=== PATIENT | female | born 1990 | race Two or more races ===

== ENCOUNTER 2024-05-07 20:54 | Emergency (ER) | payer MEDICAID, SELFPAY ==
[2024-05-07 20:54] VITALS: BMI 33.3
[2024-05-07 21:24] VITALS: BP 115/72; PULSE 76; RESP 18; TEMP 37; O2SAT 97
--- NOTE | 2024-05-07 21:31 | XR_ITS ---
Examination: Complete OB ultrasound, less than 14 weeks, transabdominal Date and time of exam: May 07, 2024 1049 hrs. Indications: Heavy vaginal bleeding and pelvic cramping today Technique: Obstetrical ultrasound images less than 14 weeks performed via transabdominal imaging Findings: Uterus 11.0 x 4.0 x 5.3 cm Intrauterine gestational sac in the lower uterine segment, no pole, no cardiac activity Gestational sac size 1.2 cm corresponds to 6 week 0 day gestational age Retained products in the cervix vaginal region 6.3 x 5.2 cm Right ovary 3.5 x 1.4 x 3.1 cm arterial flow Left ovary 3.2 x 1.4 x 2.8 cm arterial flow Impression: Incomplete spontaneous in progress, suggest short-term follow-up pelvic sonography
--- NOTE | 2024-05-07 21:34 | PD.EDPREG ---
ED OB Contraction Preg RMI/HPI General Chief complaint: OB/Uterine Contractions Stated complaint: 7WKS PREG CRAMPING /VAG BLEEDING Time Seen by Provider: 05/07/24 21:36 Arrival date/time: 05/07/24 20:54 34-year-old female A1 approximately 6 weeks gestation reports with complaints of vaginal bleeding and pelvic cramping that began this afternoon. Patient denies any dysuria urinary urgency or frequency lower back pain fever or chills. Patient also denies any trauma or taking any medications use of illicit substances. Limitations: no limitations Related Data Allergies Allergy/AdvReac Type Severity Reaction Status Date / Time No Known Allergies Allergy Verified 08/25/23 21:38 Review of Systems Constitutional Constitutional: Denies chills, Denies fever(s) and Denies headache(s) ENT Ears, Nose, Mouth, and Throat: Denies dizziness and Denies headache(s) Cardiovascular Cardiovascular: Denies chest pain and Denies dyspnea Respiratory Respiratory: Denies cough and Denies dyspnea Gastrointestinal Gastrointestinal: Denies nausea and Denies vomiting Genitourinary Genitourinary: Reports abnormal vaginal bleeding, Denies dysuria, Denies flank pain, Reports pelvic pain and Denies urinary hesitancy Musculoskeletal Musculoskeletal: Denies back pain and Denies myalgias Integumentary/Breasts Skin/Breast: Denies erythema and Denies rash Neurologic Neurologic: Denies dizziness and Denies headache(s) Hematologic/Lymphatic Hematologic/Lymphatic: Denies easy bleeding and Denies easy bruising Past Medical History Social History SMOKING STATUS: Never smoker ED Exam General Limitations: Present no limitations General appearance: Present alert and in no apparent distress Chest Chest inspection: Present normal inspection and symmetric chest wall rise Respiratory Respiratory exam: Present normal lung sounds bilaterally Cardiovascular Cardiovascular exam: Present regular rate, normal rhythm and normal heart sounds Abdominal Exam Abdominal exam: Present soft and normal bowel sounds External exam: Present normal external exam; Absent erythema or tenderness Speculum exam: Present vaginal bleeding and tissue Bimanual exam: Absent cervical motion tenderness or adnexal tenderness Extremities Exam Extremities exam: Present normal inspection and full ROM Back Exam Back exam: Present normal inspection and full ROM Neurological Exam Neurological exam: Present alert, oriented X3 and CN II-XII intact Psychiatric Psychiatric exam: Present normal affect and normal mood Skin Skin exam: Present warm, dry, intact and normal color Course Course Course Narrative: 34-year-old female A1 approximately 7 weeks gestation reports with complaints of vaginal bleeding. Patient's ultrasound indicates incomplete spontaneous in progress beta hCG of less than 2000. Patient is currently stable nontoxic-appearing with stable vital signs urine analysis negative for evidence of infection GC is pending. Patient will be discharged home with a 2-day follow-up with her [employer] for further evaluation of complete . Quality Measures none Orders Category Date Time Status Pelvic Exam X1 Care 05/07/24 21:32 Active US OB <= 14 weeks fetus Stat Exams 05/07/24 21:31 Completed Beta HCG,Quantitative Stat Lab 05/07/24 22:00 Completed Chlamydia/GC/TV - PCR Stat Lab 05/07/24 Ordered UA, C/S IF [Urinalysis, C/S if Indicated] Stat Lab 05/07/24 21:50 Completed Urine Culture Stat Lab 05/07/24 21:50 Received Vital Signs Vital signs: Vital Signs Temperature 98.6 F 05/07/24 21:24 Pulse Rate 76 05/07/24 21:24 Respiratory Rate 18 05/07/24 21:24 Blood Pressure 115/72 05/07/24 21:24 Pulse Oximetry (%) 97 05/07/24 21:24 Oxygen Delivery Method Room Air 05/07/24 21:24 OB/Uterine Contractions Patient data External records reviewed:: None Clinical information provided by:: patient Social determinants that could affect healthcare access:: none Patient has the following chronic illnesses:: none How is presenting disease/condition affected by chronic disease/condition?: no chronic disease Evaluation data The following diagnostics were reviewed and interpreted by me:: lab results and radiology exam(s) Lab and/or radiology exams considered but not ordered:: none Interpretation Summary: Incomplete spontaneous Medications / Prescriptions Medications or Prescriptions considered but not ordered:: None Medication administrations:: None Consultations Consultation(s) initiated? (list below): No Diagnosis OB Contractions Differential Diagnosis: other (Threatened versus spontaneous ) Most likely diagnosis given after review of the tests above:: Incomplete spontaneous Admission Indicated Explain why admission is indicated or not indicated:: Patient is stable nontoxic-appearing with stable vital signs with a miscarriage of only 7 weeks gestation Admission Request Was there a request for admission?: No Disposition Plan Disposition Plan: Discharge Discharge Attestation Discharge Attestation: The patient and all family members were given an opportunity to ask questions and understood the discharge instructions. Discharge instructions specifically effects, indications for sooner follow up or return to the emergency department, and the expected course of current diagnosis. Patient condition: Stable Discharge Plan Plan Patient Disposition: HOME (Self Care) Prescriptions/Referrals Referrals: Temporary Provider,ED [Physician] - In 1 week Problem List Clinical Impression: Incomplete Patient/Caregiver Discharge Instructions Education Materials: Understanding Miscarriage ..., Miscarriage Trying Again, ED Miscarriage, Incomplete Additional Instructions: Hydrate well get plenty of rest please follow-up with your [employer]GER or primary care provider in 24 to 48 hours for reevaluation. If symptoms should worsen return to the emergency department immediately Print Language: Colombian Stand Alone Forms: Anna Award Info., Patient Portal Info Letter
[2024-05-07 22:24] LABS: Collection Type, Urine Clean Catch
[2024-05-07 22:34] LABS: Bilirubin,Urine Negative (Negative); Blood,Urine 3+ (Negative); Color,Urine Brown (Lt Yel-Yel); Glucose, Urine Negative (Negative); Ketones,Urine Negative (Negative); Leukocyte Esterase,Urine Positive (Negative); Nitrite,Urine Negative (Negative); PH,Urine 6.5 (5.0-7.0); Protein,Urine 1+ (Neg - Trace); RBC,Urine 5434 /hpf (0-3); Specific Gravity,Urine 1.023 (1.001-1.035); Squamous Epithelial Cell,Urine 4 /hpf (0-5); Urobilinogen,Urine Negative mg/dL (0.0-1.0); WBC,Urine 37 /hpf (0-5)
[2024-05-07 22:35] LABS: Clarity,Urine Turbid (Clear/Hazy); Culture Indicated,Urine Yes
[2024-05-07 22:54] LABS: Beta HCG,Quantitative 2810 mIU/mL (<5.0)
== END 2024-05-08 00:45 | disposition home or self-care (01) ==
PROVIDERS: Physician Assistant; Emergency Provider Emergency Medicine
DX: O03.4 Incomplete spontaneous abortion without complication (principal); Z3A.01 Less than 8 weeks gestation of pregnancy
CPT/HCPCS: 36415; 76801; 81001; 84702; 87086; 87491; 87591; 87661; 99284

== ENCOUNTER → 2024-05-30 | Outpatient (CLI) | payer MEDICAID, SELFPAY ==
--- NOTE | 2024-05-30 10:59 | XR_ITS ---
Examination: PA lateral chest 2 views TECHNIQUE: Upright PA lateral chest 2 views Exam date and time: May 30, 2024 1104 hours INDICATIONS: Positive PPD skin test FINDINGS: Normal heart size Lungs are clear. The osseous structures are intact IMPRESSION: No active disease. No radiographic findings of tuberculosis
== END | disposition home or self-care (01) ==
PROVIDERS: Referring Provider Specialist; Visit Provider Specialist
DX: R76.11 Nonspecific reaction to tuberculin skin test without active tuberculosis (principal)
CPT/HCPCS: 71046